=== PATIENT | male | born 1955 | race Caucasian/White ===

== ENCOUNTER → 2017-09-04 | Outpatient (CLI) | payer MEDICARE ==
[~2017-09-04] MED LIST: ACET325 PO; ALBU90OI6 INH; B-122500 MCG SL; Eye Drops15 ML; Ibuprofen Ib200 MG PO; OXYC5; RXSULTRIDS PO; SULTRIDS PO; TAMS.4ER
== END | disposition home or self-care (01) ==
LOC: PLD 07:21 → LAB SHORT 07:21
DX: L57.0 Actinic keratosis (principal)
CPT/HCPCS: 88305

== ENCOUNTER → 2018-09-25 | Outpatient (CLI) | payer MEDICARE | END | disposition home or self-care (01) | LOC: PLD 14:24 → LAB SHORT 14:24 | DX: D48.5 Neoplasm of uncertain behavior of skin (principal) | CPT/HCPCS: 88305 ==

== ENCOUNTER → 2019-03-11 | Outpatient (CLI) | payer MEDICARE | END | disposition home or self-care (01) | LOC: LAB SHORT 17:39 → LAB 17:39 | PROVIDERS: Hospitalist | DX: Z12.5 Encounter for screening for malignant neoplasm of prostate (principal); E53.8 Deficiency of other specified B group vitamins | CPT/HCPCS: 82607; G0103 ==

== ENCOUNTER → 2020-09-30 | Outpatient (CLI) | payer MEDICARE | END | disposition home or self-care (01) | LOC: LAB 11:26 → LAB SHORT 11:26 | DX: C44.529 Squamous cell carcinoma of skin of other part of trunk (principal) | CPT/HCPCS: 88305 ==

== ENCOUNTER → 2021-02-16 | Outpatient (CLI) | payer MEDICARE | END | disposition home or self-care (01) | LOC: LAB 12:12 → LAB SHORT 12:12 | DX: C44.612 Basal cell carcinoma of skin of right upper limb, including shoulder (principal); D48.5 Neoplasm of uncertain behavior of skin | CPT/HCPCS: 88305 ==

== ENCOUNTER 2021-03-23 10:33 | Day surgery (SDC) | payer MEDICARE ==
[~2021-03-23] VITALS: Ht 195.6 cm; Wt 123.7 kg
[~2021-03-23 10:33] MED LIST changes: +ALBU90OI INH; +Acetaminophen650 M1 PO; +CYCLOBENZAPRINE5 MG PO; +IBUP200 PO
== END 2021-03-23 12:32 | disposition home or self-care (01) ==
LOC: ORSCSDS 10:33
PROVIDERS: Internal Medicine Gastroenterology
PROC: 0DBL8ZX Excision of Transverse Colon, Via Natural or Artificial Opening Endoscopic, Diagnostic (ICD-10-PCS; principal; 2021-03-23 11:45)
PROC: 0DBM8ZX Excision of Descending Colon, Via Natural or Artificial Opening Endoscopic, Diagnostic (ICD-10-PCS; principal; 2021-03-23 11:45)
PROC: 0DBP8ZX Excision of Rectum, Via Natural or Artificial Opening Endoscopic, Diagnostic (ICD-10-PCS; principal; 2021-03-23 11:45)
DX: Z12.11 Encounter for screening for malignant neoplasm of colon (principal); D12.3 Benign neoplasm of transverse colon; K62.1 Rectal polyp; K64.8 Other hemorrhoids; Z86.010 Personal history of colon polyps
CPT/HCPCS: 88305; J2704; J7120

== ENCOUNTER 2024-08-06 12:50 | Emergency (ER) | payer MEDICARE ==
[~2024-08-06] VITALS: Ht 195.6 cm; Wt 122.5 kg
[2024-08-06 13:39] VITALS: BP 122/100
[2024-08-06] MEDS ORDERED: CEPH500 PO (14:29)
== END 2024-08-06 14:30 | disposition home or self-care (01) ==
LOC: ER 12:50
DX: L02.415 Cutaneous abscess of right lower limb (principal); Z79.899 Other long term (current) drug therapy; Z91.010 Allergy to peanuts
CPT/HCPCS: 99282

== ENCOUNTER 2025-06-10 10:24 | Day surgery (SDC) | payer MEDICARE ==
[~2025-06-10] VITALS: Ht 195.6 cm; Wt 123.7 kg
[~2025-06-10 10:24] MED LIST changes: +CEPH500 PO
[2025-06-10] MEDS ORDERED: Ondansetron HCl 2 MG / ML 2ML Vial ONE (13:04)
[2025-06-10 13:37] VITALS: BP 104/68
== END 2025-06-10 13:36 | disposition home or self-care (01) ==
LOC: ORSCSDS 10:24
PROVIDERS: Internal Medicine Gastroenterology
PROC: 0DBP8ZX Excision of Rectum, Via Natural or Artificial Opening Endoscopic, Diagnostic (ICD-10-PCS; principal; 2025-06-10 12:00)
PROC: 0DBK8ZX Excision of Ascending Colon, Via Natural or Artificial Opening Endoscopic, Diagnostic (ICD-10-PCS; principal; 2025-06-10 12:00)
PROC: 0DBM8ZX Excision of Descending Colon, Via Natural or Artificial Opening Endoscopic, Diagnostic (ICD-10-PCS; principal; 2025-06-10 12:00)
PROC: 0DBL8ZX Excision of Transverse Colon, Via Natural or Artificial Opening Endoscopic, Diagnostic (ICD-10-PCS; principal; 2025-06-10 12:00)
DX: Z12.11 Encounter for screening for malignant neoplasm of colon (principal); D12.2 Benign neoplasm of ascending colon; D12.4 Benign neoplasm of descending colon; K63.5 Polyp of colon; K62.1 Rectal polyp; Z86.0101 Personal history of adenomatous and serrated colon polyps; G47.33 Obstructive sleep apnea (adult) (pediatric)
CPT/HCPCS: 88305; J2405; J2704; J7120